=== PATIENT | male | born 1960 | race African-American/Black ===

== ENCOUNTER 2019-07-23 00:46 | Emergency (ER) | payer OTHER ==
[~2019-07-23] VITALS: Ht 177.8 cm; Wt 82.0 kg
[2019-07-23] MEDS ORDERED: KETOROLAC 60MG/2ML VIAL IM ONE (01:30)
[2019-07-23 05:50] VITALS: BP 105/71
== END 2019-07-23 05:50 | disposition home or self-care (01) ==
LOC: ER 01:12
DX: S82.52XA Displaced fracture of medial malleolus of left tibia, initial encounter for closed fracture (principal); S82.62XA Displaced fracture of lateral malleolus of left fibula, initial encounter for closed fracture; F10.129 Alcohol abuse with intoxication, unspecified; Y90.0 Blood alcohol level of less than 20 mg/100 ml; I10 Essential (primary) hypertension; V48.5XXA Car driver injured in noncollision transport accident in traffic accident, initial encounter; Y93.89 Activity, other specified; Y92.89 Other specified places as the place of occurrence of the external cause; Y99.8 Other external cause status
CPT/HCPCS: 29515; 73610; 96372; 99283; J1885

== ENCOUNTER 2019-09-30 18:42 | Emergency (ER) | payer OTHER ==
[~2019-09-30] VITALS: Ht 172.7 cm; Wt 70.0 kg
[2019-09-30] MEDS ORDERED: ONDANSETRON HCL 4MG/2ML INJ IV STA (22:17)
[2019-09-30] MEDS ORDERED: MORPHINE SULFATE 4 MG/ML CPJ (NOT FOR IM USE) IV STA (22:17)
[2019-09-30] MEDS ORDERED: PIPERACILLIN/TAZ 3.375G PREMIX 50 ML IV ONE (22:30)
[2019-09-30] MEDS ORDERED: SODIUM CHLORIDE 0.9% 1000ML BAG (SEPSIS BOLUS) IV ONE (22:30)
[2019-09-30] MEDS ORDERED: VANCOMYCIN 1 G PREMIX 200 ML IV ONE (22:30)
[2019-09-30 22:52] LABS: BASOPHILS % 0.8 % (0.0-2.0); EOSINOPHILS % 1.4 % (0.0-5.0); HEMATOCRIT. 40.6 % (42.0-52.0); HEMOGLOBIN. 13.9 g/dL (14.0-18.0); LYMPHOCYTES % 21.6 % (20.0-50.0); MEAN CORPUSCULAR HEMOGLOBIN 30.5 pg (28.0-32.0); MEAN CORPUSCULAR VOLUME 89.3 fL (80.0-94.0); MEAN PLATELET VOLUME 7.4 fl (7.4-10.4); MONOCYTES % 6.5 % (2.0-8.0); NEUTROPHILS % 69.7 % (40.0-76.0); PLATELET 737 x1000/uL (130-400); RED BLOOD CELL COUNT 4.55 mill/uL (4.7-6.1); RED CELL DISTRIBUTION WIDTH 15.1 % (11.6-14.6)
[2019-09-30 22:58] LABS: CHLORIDE 99 mEq/L (98-107)
[2019-09-30 23:00] LABS: PROTHROMBIN TIME 10.3 sec (9.6-11.0)
[2019-09-30 23:05] LABS: ETHANOL BLOOD 156 mg/dL
[2019-09-30 23:06] LABS: CREATINE KINASE 124 IU/L (39-308)
[2019-09-30 23:09] LABS: CREATINE KINASE MB FRACTION 1.1 ng/mL (0.5-3.6)
[2019-09-30 23:53] LABS: CLARITY URINE CLEAR (CLEAR); COLOR URINE YELLOW (YELLOW); KETONES URINE NEGATIVE (NEGATIVE); LEUKOCYTE ESTERASE URINE NEGATIVE (NEGATIVE); NITRITE URINE NEGATIVE (NEGATIVE); OCCULT BLOOD URINE 1+ (NEGATIVE); PROTEIN URINE NEGATIVE (NEGATIVE); SPECIFIC GRAVITY URINE 1.015 (1.005-1.030); UROBILINOGEN URINE 0.2 E.U./dL (0.2-1.0)
[2019-10-01 00:03] LABS: *AMPHETAMINES SCREEN URINE NEGATIVE (NEGATIVE); *BARBITURATES SCREEN URINE NEGATIVE (NEGATIVE); *BENZODIAZEPINES SCREEN URINE NEGATIVE (NEGATIVE); *COCAINE SCREEN URINE NEGATIVE (NEGATIVE); METHADONE URINE SCREEN NEGATIVE (NEGATIVE); OPIATES URINE SCREEN NEGATIVE (NEGATIVE)
[2019-10-01 00:04] LABS: CANNABINOID URINE SCREEN NEGATIVE (NEGATIVE); PHENCYCLIDINE URINE SCREEN NEGATIVE (NEGATIVE)
[2019-10-01 02:45] VITALS: BP 102/60
== END 2019-10-01 03:30 | disposition short-term general hospital (02) ==
LOC: ER 19:08 → CANBEDREQ 10-01 02:55 → ER 10-01 03:30
DX: L03.116 Cellulitis of left lower limb (principal); F10.10 Alcohol abuse, uncomplicated; I10 Essential (primary) hypertension; Z59.0 Homelessness; Y90.9 Presence of alcohol in blood, level not specified
CPT/HCPCS: 36415; 73590; 80053; 80305; 80320; 81003; 82550; 82553; 83605; 83690; 84145; 84484; 85025; 85610; 87040; 87086; 93970; 96365; 96366; 96375; 99291; J2270; J2405; J2543; J3370; J7030; Z7610; G0480